=== PATIENT | female | born 2005 | race Caucasian/White ===

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

== ENCOUNTER 2024-04-13 11:00 | Outpatient (CLI) | payer OTHER, SELFPAY ==
[2024-04-13 20:04] LABS: Chol/HDL Ratio 3.7 (1-3.5); Cholesterol 168 mg/dl (140-200); HDL Cholesterol 45 mg/dl (40-60); Triglycerides 60 mg/dl (30-150); VLDL Cholesterol 12 mg/dL (0-40)
[2024-04-13 20:15] LABS: Direct LDL Cholesterol 98.55 mg/dL (100-129)
== END 2024-04-13 23:59 | disposition home or self-care (01) ==
LOC: LAB.DROPOF 04-14 11:00
PROVIDERS: PCP Internal Medicine; Visit Provider Internal Medicine
DX: E28.2 Polycystic ovarian syndrome (principal)
CPT/HCPCS: 80061

== ENCOUNTER 2024-06-21 17:39 | Emergency (ER) | payer OTHER, SELFPAY ==
[2024-06-21 17:40] VITALS: BP 129/74; PULSE 92; RESP 13; TEMP 36.8; O2SAT 100; BMI 23.6
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
--- NOTE | 2024-06-21 17:43 | XR_ITS ---
PROCEDURE INFORMATION: Exam: XR Chest Exam date and time: 06/21/2024 7:26 PM Age: 19 years old Clinical indication: Pain; Chest pressure; Additional info: Chest pain TECHNIQUE: Imaging protocol: Radiologic exam of the chest. Views: 2 views. COMPARISON: CR XR CHEST 2V 20/06/2023 09:21 FINDINGS: Lungs: Unremarkable. No consolidation. Pleural spaces: Unremarkable. No pleural effusion. No pneumothorax. Heart/Mediastinum: Unremarkable. No cardiomegaly. Bones/joints: Unremarkable. IMPRESSION: No acute findings.
[2024-06-21 18:01] LABS: Basophils # 0.1 K/mm3 (0-0.2); Basophils % 1.3 % (0.1-2.0); Eosinophils # 0.6 K/mm3 (0.0-0.4); Eosinophils % 8.2 % (0.1-12.0); Hematocrit 41.4 % (37.0-47.0); Hemoglobin 13.6 g/dL (12.2-16.2); Lymphocytes # 2.1 K/mm3 (0.7-4.5); Mean Corpuscular HGB Conc 32.8 g/dL (31.8-35.4); Mean Corpuscular Hemoglobin 26.6 pg (27.0-31.2); Mean Corpuscular Volume 81.1 fl (81-99); Mean Platelet Volume 8.2 fl (7.4-10.4); Monocytes # 0.3 K/mm3 (0.1-1.0); Monocytes % 4.7 % (1.7-9.3); Neutrophils # 3.8 K/mm3 (1.8-7.8); Neutrophils % 54.8 % (37.0-80.0); Platelet Count 231 K/mm3 (142-424); Red Blood Count 5.11 M/mm3 (4.20-5.40); Red Cell Distribution Width 13.3 % (11.5-17.5); White Blood Count 6.9 K/mm3 (4.5-13.0)
[2024-06-21] MEDS: IBUPROFEN 400 MG TABLET 800 MG PO (18:04)
[2024-06-21] MEDS: ACETAMINOPHEN 500MG TAB 1000 MG PO (18:04)
[2024-06-21] MEDS: METHOCARBAMOL 500MG TABLET 500 MG PO (18:04)
[2024-06-21] MEDS: LIDOCAINE 5% TRANSDERMAL PATCH 1 EACH TP (18:04)
[2024-06-21 18:11] LABS: Alanine Aminotransferase 29 U/L (12-78); Albumin/Globulin Ratio 1.7 (1.1-1.8); Alkaline Phosphatase 56 U/L (38-126); Anion Gap 8.8 mEq/L (5-15); Aspartate Amino Transferase 37 U/L (14-36); Bilirubin,Total 0.6 mg/dl (0.2-1.3); Blood Urea Nitrogen 11 mg/dl (7-17); Calcium 9.5 mg/dl (8.4-10.2); Carbon Dioxide 24 mmol/L (22.0-30.0); Chloride 108 mmol/L (98-107); Creatinine Clearance Estimated 122 mL/min (50-200); Estimated Glomerular Filt Rate 107 ml/min (>60); GFR (African American) 129 ML/MIN (>60); Globulin 2.9 g/dL (1.3-3.2); Glucose 66 mg/dl (74-100); Potassium 3.8 mmoL/L (3.5-5.1); Sodium 137 mmol/L (136-145); Total Protein,Serum 7.9 g/dl (6.3-8.2)
[2024-06-21 18:17] LABS: D-Dimer < 0.25 ug/mL (0.0-0.5)
[2024-06-21 18:31] LABS: Troponin I < 0.01 ng/ml (0.00-0.034)
[2024-06-21 18:37] VITALS: BP 124/84; PULSE 102; O2SAT 98
[2024-06-21 18:52] LABS: HCG Qualitative, Serum Negative (Negative)
[2024-06-21 19:00] VITALS: BP 96/53; PULSE 71; O2SAT 100
[2024-06-21 19:30] VITALS: BP 122/65; PULSE 85; O2SAT 100
[2024-06-21 19:45] LABS: HIV (1&2) Antibody Rapid NONREACTIVE (NONREACTIVE)
[2024-06-21 19:48] VITALS: BP 122/65; PULSE 64; RESP 16; TEMP 36.7; O2SAT 100
== END 2024-06-21 19:49 | disposition home or self-care (01) ==
PROVIDERS: Physician Assistant; Emergency Provider Emergency Medicine; PCP Internal Medicine
DX: R07.89 Other chest pain (principal)
CPT/HCPCS: 71046; 80053; 84484; 84703; 85025; 85378; 87389; 99284

== ENCOUNTER 2024-12-28 08:07 | Emergency (ER) | payer MEDICAID, SELFPAY ==
[2024-12-28] VITALS (11 sets, daily range): BP systolic 101–135; BP diastolic 70–87; PULSE 73–95; RESP 17–20; TEMP 36.6–36.7; O2SAT 98–100; BMI 21.9
--- NOTE | 2024-12-28 08:25 | XR_ITS ---
FINAL REPORT CLINICAL HISTORY: Right sided chest wall pain and productive cough COMPARISON: 06/18/2023 FINDINGS: PA and lateral views of the chest are obtained. The cardiac and mediastinal silhouettes are within normal limits. The lungs are clear. There is no pleural effusion, pneumothorax, or acute osseous abnormality. IMPRESSION: No radiographic evidence of acute cardiac or pulmonary disease. Reviewed, Interpreted and Dictated by Naila Pate MD Transcribed by Liya Moser Authenticated and [facility]
--- NOTE | 2024-12-28 08:36 | HMH.EDGENADL ---
Discharge Plan Disposition Patient Disposition: Home, Self-Care Prescriptions Prescriptions: New dexamethasone 6 mg tablet 6 mg PO DAILY Qty: 5 0RF Continued albuterol-budesonide 90-80 mcg/actuation HFA aerosol inhaler 2 inh inhalation BID PRN (Reason: shortness of breath or wheezing) Qty: 10.7 8RF Referrals Follow up/Referrals: Truman Smith MD [Primary Care Provider] - See instructions Activity Restrictions/Add. Instructions Additional Instructions/Restrictions: Dexamethasone each morning for the next 5 days. Albuterol/budesonide inhaler refills are also at pharmacy. Follow-up with your family doctor regarding this visit to the emergency department. Return to your family doctor or the emergency department if you have worsening symptoms. Clinical Impressions Clinical Impression: Bronchitis, Pleurisy Print Language Print Language: Persian Discharge ED Provider: Clifford Fierro General Adult HPI General Chief complaint: PAIN Stated complaint: Pain R lung area Time Seen by Provider: 12/28/24 08:08 Mode of Arrival: Family Vehicle Source of Information: Patient, Spouse and Medical Record Description of Symptoms (Recalled from ER Triage Doc. by RN): Pt c/o R shoulder/Lung pain that has been present intermittently for 1 month. States she has a hx of asthma and takes inhalers. She still has her resuce inhaler and has used it 2x this AM since 0700 wo relief. She used to have another inhaler but they didn't give me any more refills . Reports chest congestion with non-productive cough. States it tries to come up but it doesn't . Reports tenderness when she pushes on her R lung under R axialla. History of Present Illness HPI narrative: Please note that above description of symptoms, in this electronic medical record under categorization of recalled from ER triage doctor by RN are reflective of an initial nursing assessment, however, is not reflective of my full history and physical exam that was personally taken and clarified. Consequentially, this preceding description of symptoms, which may include the patient's categorized chief complaint in the EMR, do not reflect my personal clinical impression, and the ultimate description of history of present illness and patient stated complaints should be deferred to this section of the note. Unless stated otherwise or congruent with this section of the note, additional signs, symptoms, or incongruence should be interpreted as inaccurate with my clinical impression. Related Data Previous Rx's ?Medication ?Instructions ?Recorded albuterol 90 mcg-budesonide 80 2 inh inhalation BID PRN shortness 11/27/24 mcg/actuation HFA aerosol inhaler of breath or wheezing #10.7 grams dexamethasone 6 mg tablet 6 mg PO DAILY #5 tabs 12/28/24 Allergies Allergy/AdvReac Type Severity Reaction Status Date / Time kiwi Allergy Severe Anaphylaxis Verified 12/28/24 08:30 amoxicillin (AMOXICILLIN) Allergy Mild RASH Verified 12/28/24 08:30 Penicillins (PENICILLINS) Allergy Mild RASH Verified 12/01/24 11:51 [facility] Disclaimer: The information contained in this section may have been updated after the patient was seen, as this information can be updated by other users. Medical History (Updated 12/28/24 @ 09:01 by Clifford Fierro MD) Eye problem Endometriosis Feeling of incomplete bladder emptying Mixed stress and urge urinary incontinence Dyspareunia UTI (urinary tract infection) Kidney stones Depression Anxiety Dizziness depression Flank pain Acute blood loss anemia with 36 completed weeks gestation labor Syncope Headache Alpha thalassemia silent carrier headache in second trimester Rubella non-immune status, antepartum Surgical History [place] teeth removed History of section [place] teeth removed Family History Other Anemia Asthma Cancer Diabetes FHx: mental illness Hyperlipidemia Hypertension Kidney disease Stroke Substance abuse Social History (Updated 12/28/24 @ 08:30 by Valarie De Leon RN) Smoking Status: Current every day smoker tobacco type: e-cigarettes alcohol intake: never counseling provided: none substance use type: denies use current occupational status: unemployed Travel in the last 8 weeks: None household members: family housing: house Have you lived/traveled outside US in past 30 days?: No Contact w/someone who lives/traveled outside US past 30 days?: No Exposure to someone with infectious disease in past 14 days?: No Do you have a fever (greater than 100.4 F or 38 C)?: No Have you tested positive for COVID-19: No Exposed to someone with COVID-19 in past 14 days?: No Do you have a sore throat?: No Do you have a cough?: No Do you have any weakness?: No Do you have any diarrhea?: No Are you experiencing any unusual bleeding?: No Do you have any muscle aches/pain?: No Do you have any abdominal pain?: No Are you experiencing loss of taste or smell?: No Other Medical History Have you received the Flu Vaccine for this season: No Have you received the Pneumonia Vaccine: No ROS Obtained: Yes All systems reviewed & no additional complaints except as documented Physical Exam General General appearance: alert Head Head exam: atraumatic and normocephalic Eye Eye exam: Present normal appearance, PERRL and EOMI Neck Neck exam: Present normal inspection, full ROM and trachea midline Respiratory Respiratory exam: Absent respiratory distress, wheezes, stridor, accessory muscle use or prolonged expiratory phase Cardiovascular Cardiovascular exam: Present other (Pulses equal symmetric in upper and lower extremities) Abdominal Exam Abdominal exam: Present soft; Absent distention, tenderness or pulsatile mass Extremities Exam Extremities exam: Absent edema Neurological Exam Neurological exam: Present alert, oriented X3 and CN II-XII intact; Absent motor sensory deficit Skin Skin exam: Present warm and dry; Absent diaphoresis or erythema Medical Decision Making Medical Records Medical records reviewed: Yes I reviewed the patient's medical records. Screening: Per USPSTF and CDC recommendations, given the prevalence of disease in our region, it is our hospital?s policy to screen for HIV and viral Hepatitis for all patients aged 18 and over and those with ongoing risk factors. Bill Inquiry Pt receiving controlled substance: No Bill was queried for this patient: No Vital Signs: 12/28/24 08:10 12/28/24 08:11 12/28/24 08:15 Temperature 97.9 F Temperature Source Oral Pulse Rate 95 H 81 Pulse Rate [Right] 79 Respiratory Rate 17 Blood Pressure 135/87 122/73 Blood Pressure [Right Arm] 135/87 Blood Pressure Mean [Right Arm] 103 Blood Pressure Source [Right Arm] Automatic Cuff 02 Sat by Pulse Oximetry 100 99 98 Oxygen Delivery Method Room Air Room Air Room Air 12/28/24 08:20 12/28/24 08:25 12/28/24 08:30 Temperature Temperature Source Pulse Rate 95 H 78 77 Pulse Rate [Right] Respiratory Rate Blood Pressure 119/83 134/82 117/81 Blood Pressure [Right Arm] Blood Pressure Mean [Right Arm] Blood Pressure Source [Right Arm] 02 Sat by Pulse Oximetry 99 100 98 Oxygen Delivery Method Room Air Room Air Room Air 12/28/24 08:35 12/28/24 08:40 12/28/24 08:45 Temperature Temperature Source Pulse Rate 73 77 82 Pulse Rate [Right] Respiratory Rate Blood Pressure 118/73 112/70 101/75 L Blood Pressure [Right Arm] Blood Pressure Mean [Right Arm] Blood Pressure Source [Right Arm] 02 Sat by Pulse Oximetry 100 100 99 Oxygen Delivery Method Room Air Room Air Room Air 12/28/24 08:50 Temperature Temperature Source Pulse Rate 88 Pulse Rate [Right] Respiratory Rate Blood Pressure 114/73 Blood Pressure [Right Arm] Blood Pressure Mean [Right Arm] Blood Pressure Source [Right Arm] 02 Sat by Pulse Oximetry 99 Oxygen Delivery Method Room Air Orders (Tests/Meds): ED MEDICATIONS Generic Name Dose Route Start Last Admin Trade Name Freq PRN Reason Stop Dose Admin Dexamethasone 10 mg 12/28/24 08:58 Dexamethasone 4mg Tablet PO 12/28/24 08:59 ONCE ONE ORDERS Category Date Time Status CXR 2 view (NOT portable) [XR chest 2V] Stat Exams 12/28/24 08:25 Taken Medical Decision Narrative: This is a 19-year-old female presenting with right-sided chest wall pain and productive cough. She states that she had this in the past and it was bronchitis. States that this chest wall pain is under her right axilla, not made better or worse by anything in particular. She states that when she coughs and is able to produce sputum she does not know what color it is as she has not looked at it. States that when she does produce larger amounts of sputum, the chest pain resolves. No fevers or chills, vomiting, abdominal complaints, shortness of breath, radiation of pain, left-sided chest pain, neurologic deficits, diaphoresis, or any other associated symptoms. This has been going on for approximately a month and a half at this point. She does smoke about 1/2 vaporizer pen per week. History was obtained via conversation with patient. On arrival, patient hemodynamically stable, alert, oriented x4, appropriate, GCS 15, moving all extremities spontaneously, pupils equal and reactive to light. Full physical exam performed and significant for very clinically well-appearing 19-year-old female in no acute distress. Speaking in full sentences. Nontachypneic, nontachycardic, no increased work of breathing. Cardiac exam normal, lung exam with minimal inspiratory wheezing heard in superior/posterior bilateral lung lebron. Differential includes bronchitis, pneumonia, less likely to be PE, pneumothorax, dissection, among others. Patient placed on continuous cardiac monitoring and continuous pulse ox with initial blood pressure 135/87, heart rate 79, saturation 100% on room air. Hematologic workup was considered, but patient with no vital sign abnormalities, no acute distress, incredibly clinically well-appearing, so not performed for these reasons. Chest x-ray obtained. On independent interpretation, no acute intrathoracic abnormality. On reevaluation, patient still resting comfortably. She was given first dose of Decadron. Given patient presentation, workup, history, this most likely represents bronchitis with pleurisy. Regarding social determinants of health, patient states that she does not have good access to her primary care provider, is supposed to be on beta agonist/steroid inhaler, but has not been able to get it filled. Refills were sent to the pharmacy. Because patient at baseline without signs or symptoms of clinical decompensation, deemed appropriate for discharge. Results were relayed to patient who voiced understanding and were agreeable to outpatient management and follow up. I discussed my clinical impression with patient and answered all questions. At this time, the evidence for any other entities in the differential is insufficient to warrant any further testing or ED observation. This was explained as well. Advisory was given that persistent or worsening symptoms require further evaluation. I confirmed the understanding of this discussion. Messenger Floorperson disclaimer Much of this encounter note is an electronic benzene washer operator spoken language to printed text. Electronic benzene washer operator of the spoken language may permit errors. Although I have reviewed the note, some errors may still exist. Critical Care Critical Care Time Critical Care Time: No
[2024-12-28] MEDS: DEXAMETHASONE 4MG TABLET 10 MG PO (09:10)
== END 2024-12-28 09:15 | disposition home or self-care (01) ==
PROVIDERS: Emergency Provider Emergency Medicine; PCP Family Medicine
DX: R09.1 Pleurisy (principal); J20.9 Acute bronchitis, unspecified; F17.290 Nicotine dependence, other tobacco product, uncomplicated
CPT/HCPCS: 71046; 99284; J8540

== ENCOUNTER 2025-05-31 10:21 | Outpatient (CLI) | payer MEDICAID, SELFPAY ==
[2025-05-31 14:55] LABS: Hematocrit 40.9 % (37.0-47.0); Hemoglobin 13.0 g/dL (12.2-16.2); Immature Granulocytes % 0.1 %; Mean Corpuscular HGB Conc 31.8 g/dL (31.8-35.4); Mean Corpuscular Hemoglobin 26.5 pg (27.0-31.2); Mean Corpuscular Volume 83.3 fl (81-99); Nucleated Red Blood Cells % 0 %; Platelet Count 227 K/mm3 (142-424); Red Blood Count 4.91 M/mm3 (4.20-5.40); Red Cell Distribution Width-SD 39.6 fL; White Blood Count 6.9 K/mm3 (4.8-10.8)
[2025-05-31 16:18] LABS: Alanine Aminotransferase 27 U/L (12-78); Albumin Level 4.6 g/dl (3.5-5.0); Albumin/Globulin Ratio 2.3 (1.1-1.8); Alkaline Phosphatase 63 U/L (38-126); Anion Gap 13.1 mEq/L (5-15); Aspartate Amino Transferase 24 U/L (14-36); Bilirubin,Total 0.5 mg/dl (0.2-1.3); Blood Urea Nitrogen 8 mg/dl (7-17); Calcium 9.4 mg/dl (8.4-10.2); Carbon Dioxide 24 mmol/L (22.0-30.0); Chloride 103 mmol/L (98-107); Creatinine,Serum 0.70 mg/dl (0.52-1.04); Estimated Glomerular Filt Rate 106 ml/min (>60); GFR (African American) 128 ML/MIN (>60); Globulin 2.0 g/dL (1.3-3.2); Glucose 89 mg/dl (74-100); Potassium 4.1 mmoL/L (3.5-5.1); Sodium 136 mmol/L (136-145); Total Protein,Serum 6.6 g/dl (6.3-8.2)
[2025-05-31 16:40] LABS: Free T4 (Free Thyroxine) 0.96 ng/dl (0.78-2.19)
[2025-05-31 16:54] LABS: Thyroid Stimulating Hormone 0.55 uIU/mL (0.465-4.68)
[2025-05-31 17:13] LABS: Vitamin B12 264 pg/mL (239-931)
[2025-05-31 18:01] LABS: Folate 8.41 ng/mL
--- OUTSIDE RECORDS SUMMARY | 2025-06-04 09:40 | XMS_ITS | Clinical Summary ---
Author Organization Healthcare Address [address] [place] [address] Care Team Providers Care Farm Crew Leader Name Role Phone Unavailable Primary Care Provider Unavailabl e Social History Tobacco Use Types Packs/Day Years Used Date Smoking Tobacco: Never Assessed Comments Unknown Sex and Gender Information Value Date Recorded Sex Assigned at Not on file Legal Sex Female 7:15 PM EDT Gender Identity Not on file Sexual Orientation Not on file Plan of Treatment Health Maintenance Due Date Last Done Comments [facility]-Depression Screening 2004 [facility]-Infant/Child/Adol SDOH Screenings 2004 HPV Vaccines (2 - 3-dose series) 08/13/2020 07/16/2020 [facility]- SDOH Screenings 2022 [facility]-Adult SDOH Screenings 2022 [facility]-Pap Smear 2025 [id number] Vaccine (2 - season) 2025 05/03/2021 [facility]-Influenza Vaccine (#1) 2025 [facility]-DTaP,Tdap,and Td Vaccines (2 - Td or Tdap) 01/21/2026 01/22/2016 [facility]-Zoster Vaccines (1 of 2) 2054 01/22/2016, 07/04/2007 [facility]-Hepatitis B Vaccines Completed 008, 02/09/2008, 09/09/2007, Additional history exists [facility]-IPV Vaccines Completed 05/29/2008, 01/2008, 09/09/2007, Additional history exists [facility]-Varicella Vaccines Completed 01/22/2016, 2006 [facility]-Hepatitis A Vaccines Completed 07/16/2020, 02/2019 [facility]-HIB Vaccines Aged Out No longer e ligible based on patient's age to complete this topic [facility]-Pneumococcal Vaccine: Pediatrics (0 to 5 Years) and At-Risk Patients (6 to 49 Years) Aged Out No longer eligible based on patient's age to complete this topic [facility]-Rotavirus Vaccines Aged Out No lo nger eligible based on patient's age to complete this topic Insurance [employer]
--- OUTSIDE RECORDS SUMMARY | 2025-06-04 09:40 | XMS_ITS | Clinical Summary ---
Author Organization [facility] Address [address] [place] [address] Care Team Providers Care Tool And Die Maker Name Role Phone Yuriy Guzmán MD Primary Care Provider [phone] Allergies Active Allergy Reactions Criticality Noted Date Comments Amoxicillin Rash Low 08/09/2019 Penicillins Rash Low 08/09/2019 Medications Vit-Fe Fumarate-FA ( 27) 27-1 MG tablet tablet Take by mouth Daily. 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 Not on file 08/2023 Does Anyone Keep You from Co ntacting Others or Doint Things Outside the Home? Not on file 06/17/2023 Physical Sign of Abuse Present Not on file 1 Housing Stability Answer Date Recorded Current Living Arrangements Not on file 06/06 Potentially Unsafe Housing Conditions Not on kb e 06/17/2023 Family and Community Support Answer Abdirahman e Recorded Help with Day-to-Day Activities Not on file 06/17/2023 Lonely or Isolated Not on file 06/17/2023 Employment Answer Date Recorded Do you want help finding or keeping work or a surendra b? Not on file 06/17/2023 Disabilities Answer Date Recorded Concentrating, Remembering, or Making Decisions Difficulty Not on file 06/17/2023 Doing Errands Independently Difficulty Not on fi le 06/17/2023 Education Answer Date Recorded Help with school or training? Not on file Preferred Language Not on file 06/17/2023 Comments No Sex and Gender Information Value Date Recorded Sex Assigned at Not on file Legal Sex Female 12:54 PM EST Gender Identity Not on file Sexual Orientation Not on file Last Filed Vital Signs Vital Sign Reading Time Taken Comments Blood Pressure 140/84 08/09/2019 10:58 AM EST Pulse - - Temperature - - Respiratory Rate - - Oxygen Saturation - - Inhaled Oxygen Concentration - - Weight 84.8 kg (187 lb) 08/09/2019 10:58 AM EST Height 158.8 cm (5' 2.5 ) 08/09/2019 11:03 AM ES T Body Mass Index 33.66 08/09/2019 10:58 AM EST Plan of Treatment Health Maintenance Due Date Last Done Comments Annual Gynecologic Pelvic an d Breast Exam 2004 HPV VACCINES (1 - 3-dose series) 2019 ANNUAL PHYSICAL 08/09/2019 HEPATITIS C SCREENING 08/09/2019 MENINGOCOCCAL B VACCINE (1 o f 2 - Standard) 2020 TDAP/TD VACCINES (1 - Tdap) 2023 INFLUENZA VACCINE 04/06/2025 MENINGOCOCCAL VACCINE Aged Out No jessica maikel eligible based on patient's age to complete this topic Pneumococcal Vaccine 0-49 Aged Out No longer eligible based on patient's age to complete this topic Insurance [facility] Care Teams Tool And Die Maker Relationship Specialty Start Date End Date Yuriy Guzmán MD [address] [facility] [address] [facility] [place] [id number] PCP - General Obstetrics and Gynecology 08/07/19
== END 2025-05-31 23:59 ==
LOC: LAB.DROPOF 06-04 09:37
PROVIDERS: PCP Student in an Organized Health Care Education/Training Program; Visit Provider Student in an Organized Health Care Education/Training Program
DX: L65.9 Nonscarring hair loss, unspecified (principal); F41.1 Generalized anxiety disorder; Z71.3 Dietary counseling and surveillance
CPT/HCPCS: 80053; 82607; 82746; 84439; 84443; 85025